=== PATIENT | male | born 1975 | race African-American/Black ===

== ENCOUNTER 2017-01-20 01:17 | Emergency (ER) | payer MEDICAID ==
[~2017-01-20] VITALS: Ht 185.4 cm; Wt 122.0 kg
[2017-01-20] MEDS ORDERED: MORPHINE SULFATE 4 MG/ML CPJ (NOT FOR IM USE) IV ONE (02:00)
[2017-01-20] MEDS ORDERED: ONDANSETRON HCL 4MG/2ML VIAL IV ONE (02:00)
[2017-01-20 02:12] LABS: CHLORIDE 104 mEq/L (98-107); INDEX HEMOLYSI 1 (1-3); INDEX ICTERIC 1 (1-4); INDEX LIPEMIC 1 (1-3)
[2017-01-20 02:21] LABS: ALANINE AMINOTRANSFERASE 14 IU/L (13-61); ALBUMIN 3.5 g/dL (3.4-5.0); ANION GAP 12; CALCIUM 8.9 mg/dL (8.5-10.1); CARBON DIOXIDE 27 mEq/L (21-32); ETHANOL BLOOD < 10 mg/dL; UREA NITROGEN BLOOD 11 mg/dL (7-21); eGFR > 60 mL/min (>60)
[2017-01-20 02:23] LABS: BASOPHILS % 1.2 % (0.0-2.0); EOSINOPHILS % 0.8 % (0.0-5.0); HEMATOCRIT. 42.2 % (42.0-52.0); LYMPHOCYTES % 24.2 % (20.0-50.0); MEAN CORPUSCULAR HEMOGLOBIN 26.8 pg (28.0-32.0); MEAN CORPUSCULAR HGB CONC 33.2 g/dL (31.0-37.0); MEAN CORPUSCULAR VOLUME 80.8 fL (80.0-94.0); MEAN PLATELET VOLUME 7.9 fl (7.4-10.4); MONOCYTES % 9.2 % (2.0-8.0); NEUTROPHILS % 64.6 % (40.0-76.0); PLATELET 255 x1000/uL (130-400); RED BLOOD CELL COUNT 5.22 mill/uL (4.7-6.1); RED CELL DISTRIBUTION WIDTH 15.3 % (11.6-14.6); WHITE BLOOD COUNT 8.8 x1000/uL (4.5-11.0)
[2017-01-20] MEDS ORDERED: ACETAMINOPHEN 650MG/20.3ML UDC PO ONE (05:15)
[2017-01-20] MEDS ORDERED: ACETAMINOPHEN 325MG TABLET PO NR (05:30)
[2017-01-20 06:59] VITALS: BP 154/99
[2017-01-20] MEDS ORDERED: IBUPROFEN 600MG TABLET PO ONE (07:00)
== END 2017-01-20 07:00 | disposition home or self-care (01) ==
LOC: ER 01:18
DX: M54.5 Low back pain (principal); M25.511 Pain in right shoulder; G25.3 Myoclonus; E11.9 Type 2 diabetes mellitus without complications; J45.909 Unspecified asthma, uncomplicated; F20.9 Schizophrenia, unspecified; G40.909 Epilepsy, unspecified, not intractable, without status epilepticus; F17.210 Nicotine dependence, cigarettes, uncomplicated; W07.XXXA Fall from chair, initial encounter; Y92.018 Other place in single-family (private) house as the place of occurrence of the external cause
CPT/HCPCS: 36415; 70450; 72125; 72128; 72131; 73030; 80053; 82962; 85025; 96374; 96375; 99285; G0482; J2270; J2405; Z7610

== ENCOUNTER 2017-01-21 09:19 | Emergency (ER) | payer MEDICAID ==
[~2017-01-21] VITALS: Ht 188 cm; Wt 113.0 kg
[2017-01-21] MEDS ORDERED: OLANZAPINE 10 MG/VIAL IM STA (09:29)
[2017-01-21] MEDS ORDERED: DIPHENHYDRAMINE 50MG/ML VIAL IM STA (09:29)
[2017-01-21] MEDS ORDERED: LORAZEPAM 2MG/ML CPJ IM STA (09:29)
[2017-01-21 10:00] LABS: BASOPHILS % 0.7 % (0.0-2.0); EOSINOPHILS % 0.5 % (0.0-5.0); HEMATOCRIT. 44.2 % (42.0-52.0); HEMOGLOBIN. 14.9 g/dL (14.0-18.0); LYMPHOCYTES % 13.5 % (20.0-50.0); MEAN CORPUSCULAR HEMOGLOBIN 27.2 pg (28.0-32.0); MEAN CORPUSCULAR HGB CONC 33.7 g/dL (31.0-37.0); MEAN CORPUSCULAR VOLUME 80.8 fL (80.0-94.0); MONOCYTES % 10.6 % (2.0-8.0); NEUTROPHILS % 74.7 % (40.0-76.0); PLATELET 286 x1000/uL (130-400); RED BLOOD CELL COUNT 5.47 mill/uL (4.7-6.1); RED CELL DISTRIBUTION WIDTH 15.2 % (11.6-14.6); WHITE BLOOD COUNT 10.1 x1000/uL (4.5-11.0)
[2017-01-21 10:16] LABS: ALANINE AMINOTRANSFERASE 16 IU/L (13-61); ALBUMIN 4.3 g/dL (3.4-5.0); ANION GAP 13; CALCIUM 9.8 mg/dL (8.5-10.1); CARBON DIOXIDE 26 mEq/L (21-32); CHLORIDE 103 mEq/L (98-107); ETHANOL BLOOD < 10 mg/dL; INDEX HEMOLYSI 1 (1-3); INDEX ICTERIC 1 (1-4); INDEX LIPEMIC 1 (1-3); UREA NITROGEN BLOOD 15 mg/dL (7-21); eGFR > 60 mL/min (>60)
[2017-01-21 10:51] LABS: CLARITY URINE CLEAR (CLEAR); COLOR URINE YELLOW (YELLOW); GLUCOSE URINE NEGATIVE (NEGATIVE); KETONES URINE 2+ (NEGATIVE); LEUKOCYTE ESTERASE URINE NEGATIVE (NEGATIVE); NITRITE URINE NEGATIVE (NEGATIVE); OCCULT BLOOD URINE NEGATIVE (NEGATIVE); PH URINE 6.5 (4.5-8.0); PROTEIN URINE NEGATIVE (NEGATIVE); SPECIFIC GRAVITY URINE 1.021 (1.005-1.030)
[2017-01-21 11:09] LABS: *AMPHETAMINES SCREEN URINE PRESUMTIVE POSITIVE (NEGATIVE); *BARBITURATES SCREEN URINE NEGATIVE (NEGATIVE); *BENZODIAZEPINES SCREEN URINE NEGATIVE (NEGATIVE); *COCAINE SCREEN URINE PRESUMTIVE POSITIVE (NEGATIVE); ECSTASY MDMA SCREEN URINE NEGATIVE (NEGATIVE); METHADONE URINE SCREEN NEGATIVE (NEGATIVE); OPIATES URINE SCREEN NEGATIVE (NEGATIVE)
[2017-01-21 11:10] LABS: CANNABINOID URINE SCREEN PRESUMTIVE POSITIVE (NEGATIVE); PHENCYCLIDINE URINE SCREEN PRESUMTIVE POSITIVE (NEGATIVE)
[2017-01-22] MEDS ORDERED: ACETAMINOPHEN 325MG TABLET PO ONE (01:00)
[2017-01-22] MEDS ORDERED: OLANZAPINE 10 MG/VIAL IM ONE (01:00)
[2017-01-22] MEDS ORDERED: VALPROIC ACID 250MG CAPSULE PO ONE (23:00)
[2017-01-23] MEDS: QUETIAPINE FUMARATE 100MG TABLET PO SCH ×3 (00:40→23:25)
[2017-01-23] MEDS ORDERED: ACETAMINOPHEN 325MG TABLET PO ONE (11:45)
[2017-01-24] MEDS: QUETIAPINE FUMARATE 100MG TABLET PO SCH (04:36)
[2017-01-24 07:30] VITALS: BP 131/71
== END 2017-01-24 10:22 | disposition home or self-care (01) ==
LOC: ER 09:20
DX: F16.151 Hallucinogen abuse with hallucinogen-induced psychotic disorder with hallucinations (principal); F15.151 Other stimulant abuse with stimulant-induced psychotic disorder with hallucinations; F14.151 Cocaine abuse with cocaine-induced psychotic disorder with hallucinations; F12.151 Cannabis abuse with psychotic disorder with hallucinations; G40.909 Epilepsy, unspecified, not intractable, without status epilepticus; J45.909 Unspecified asthma, uncomplicated; F43.10 Post-traumatic stress disorder, unspecified; E11.9 Type 2 diabetes mellitus without complications; F17.210 Nicotine dependence, cigarettes, uncomplicated; Z78.1 Physical restraint status
CPT/HCPCS: 36415; 80053; 80305; 81003; 82962; 85025; 96372; 99284; G0482; J1200; J2060; J3490; Z7610